=== PATIENT | male | born 1955 | race Two or more races ===

== ENCOUNTER 2024-05-15 01:38 | Emergency (ER) | payer OTHER ==
[~2024-05-15] VITALS: Ht 177.8 cm; Wt 106.1 kg
[~2024-05-15 01:38] MED LIST: ASPIR 8181 MG; CARVEDILOL3.125 MG; LAXIS; LIPITOR20 MG; METFORMIN HCL500 MG; SYNTHROID50 MCG; VASOTEC20 MG
[2024-05-15] MEDS ORDERED: KETOROLAC TROMETHAMINE 60 MG VIAL IM ONE ×2 (02:30→02:31)
[2024-05-15] MEDS ORDERED: OxyCODONE HCL/APAP UD (PERCOCET) PO ONE (03:00)
== END 2024-05-15 03:09 | disposition home or self-care (01) ==
LOC: ER 01:41
DX: S42.92XA Fracture of left shoulder girdle, part unspecified, initial encounter for closed fracture (principal); W19.XXXA Unspecified fall, initial encounter; Y93.89 Activity, other specified; Y92.488 Other paved roadways as the place of occurrence of the external cause; Y99.8 Other external cause status; M25.512 Pain in left shoulder; I10 Essential (primary) hypertension; E03.8 Other specified hypothyroidism; E11.9 Type 2 diabetes mellitus without complications; Z79.84 Long term (current) use of oral hypoglycemic drugs; Z91.041 Radiographic dye allergy status
CPT/HCPCS: 73030; 96372; 99283; J1885